=== PATIENT | male | born 2000 | race Caucasian/White ===

== ENCOUNTER 2019-08-29 15:26 | Emergency (ER) | payer SELFPAY ==
--- NOTE | 2019-08-29 15:31 | XRR_ITS ---
PROCEDURE INFORMATION: Exam: XR Right Hand Exam date and time: 08/29/2019 4:04 PM Age: 19 years old Clinical indication: Injury or trauma; Injury history: Punched the floor; Initial encounter; Blunt trauma (contusions or hematomas; Hand; Right; Injury date: 08/26/19 TECHNIQUE: Imaging protocol: XR Right hand. Views: 3 or more views. COMPARISON: No relevant prior studies available. FINDINGS: Bones/joints: There is an acute nondisplaced fracture of the proximal 5th metacarpal. No intra-articular extension is seen. No dislocation. Soft tissues: Soft tissue swelling. XR/XR hand RT min 3V* [id number] IMPRESSION: Acute nondisplaced fracture of the proximal 5th metacarpal.
[2019-08-29 15:32] VITALS: BP 157/92; PULSE 98; RESP 18; TEMP 36.5; O2SAT 98; BMI 19.2
--- NOTE | 2019-08-29 18:30 | ED_ITS ---
HPI - Extremity Problem General: Chief complaint: Extremity Injury, Upper Stated complaint: hurt right hand Time Seen by Provider: 08/29/19 18:10 History of Present Illness: HPI Narrative: Myles is a 19-year-old male who comes in after he punched the ground with his right hand 3 to 4 days ago. He has had pain and swelling since that time. The pain is described as moderate to severe located mostly on the medial aspect of the hand back by the pinky finger. Patient is able to move his hand completely except for what is limited by swelling. He denies any distal numbness tingling or weakness. Of course moving his hand makes the pain worse and rest and ice make it better. Patient denies any other injuries or complaints. Associated symptoms: Deny chest pain, fever(s) or rash Review of Systems Const: Denies: fever(s), chills, body aches, fatigue, malaise, night sweats or diaphoresis Eyes: Denies: change in vision, blurry vision or blind spots ENMT: Denies: throat pain, odynophagia, hoarseness, ear or mastoid pain, ear discharge, change in hearing or nasal discharge Card: Denies: chest pain, palpitations, irregular heart rhythm, lightheadedness, syncope, pre-syncope, dyspnea on exertion or orthopnea Resp: Denies: dyspnea, productive cough, non-productive cough, wheezing, hemoptysis or chest congestion GI: Denies: abdominal pain, nausea, vomiting, hematemesis, coffee ground emesis, heartburn, diarrhea, constipation, GI cramping, hematochezia or melena : Denies: flank pain, dysuria, urinary frequency, urinary urgency, oliguria, urinary incontinence or hematuria Musc: Reports: extremity pain and joint pain; Denies: neck pain, back pain, extremity swelling, joint swelling, joint redness, joint warmth or joint stiffness Skin/Breast: Denies: rash, pruritus, erythema, skin tenderness or jaundice Neuro: Denies: headache(s), numbness in extremities, weakness in extremities, sensory changes, lack of coordination, difficulty walking, dizziness, vertigo, confusion or Slurred speech present Endo: Denies: polyuria, polydipsia, tired all the time, cold intolerance, excessive sweating, flushing, hot flashes or heat intolerance [place]/Lymph: Denies: easy bruising, easy bleeding, petechiae, purpura or enlarged lymph nodes All/Imm: Denies: urticaria, throat swelling, tongue swelling, facial swelling or acute wheezing PFSH ED PFSH: Medical History (Updated 08/29/19 @ 18:49 by Francheska Mcintosh) No pertinent past medical history Social History Smoking and tobacco status: current every day smoker Physical Exam Const: COMMON NORMALS: no acute distress, patient oriented x3, no limitations, healthy appearing and well nourished EXAM LIMITATIONS: no altered mental status GENERAL APPEARANCE: cooperative, well kempt and well developed HENMT: COMMON NORMALS: normocephalic, atraumatic, hearing grossly normal bilaterally, external ears normal, EAC's normal, Normal external nose present and moist oral mucous membranes HEAD & SCALP: normal to inspection, normocephalic and atraumatic FACE & SINUS: normal facial exam and face symmetric NOSE: Normal external nose present and Normal nares present EXTERNAL EAR: Yes external ears normal EXTERNAL AUDITORY CANAL: EAC's normal MOUTH: Normal oral and palatal mucosa present, lip normal and tongue normal Eye: COMMON NORMALS: Equal, round and reactive pupils present, EOMs intact bilaterally, conjunctivae normal and no scleral icterus GENERAL EYE: appearance normal, both eyes and all related structures and normal light reflex ALIGNMENT: Yes alignment normal PERIORBITAL: periorbital findings normal EYELID: eyelids normal CONJUNCTIVA: Yes conjunctivae normal SCLERA: sclerae normal PUPIL: Yes Equal, round and reactive pupils present DIRECT OPHTHALMOSCOPY: Yes normal light reflex Neck/C-Spine: COMMON NORMALS: full ROM, no lymphadenopathy, supple, no meningeal signs and no JVD GENERAL: Yes normal visual inspection and Yes trachea midline CERVICAL SPINE: Yes cervical ROM normal Chest: COMMONS NORMALS: normal inspection of the chest and normal palpation of entire chest wall Resp: COMMON NORMALS: normal respiratory effort, No retractions, No use of a ccessory muscles and clear to auscultation bilaterally EFFORT & INSPECTION: Yes able to speak in complete sentences AUSCULTATION: clear to auscultation bilaterally, no crackles, no rales, no rhonchi and no wheezes Cardio: COMMON NORMALS: no JVD, regular rate, regular rhythm, S1 normal heart sound present, S2 normal heart sound present, No gallops present (Cardio), No clicks present (Cardio), No murmurs present (Cardio) and No rub (Cardio) RATE: regular rate RHYTHM: regular rhythm HEART SOUNDS: S1 normal heart sound present, S2 normal heart sound present, no click, no gallops, no murmurs and no rubs GI: COMMON NORMALS: Soft to palpation, non-tender, No hepatosplenomegaly present and no masses PALPATION: Yes Soft to palpation, No Tenderness to palpation present (GI), No Guarding due to palpation present (GI), No Rigid due to palpation, Yes No hepatosplenomegaly present, No Hernia present, No Palpable mass present and No Pulsatile mass present : COMMON NORMALS: Yes no CVA tenderness BLADDER/KIDNEY EXAM: Yes no CVA tenderness Back/Pelvis: COMMON NORMALS: no CVA tenderness, thoracic and lumbar spine normal to inspection, no thoracic nor lumbar tenderness and thoraco-lumbar ROM normal Extremity: NARRATIVE EXTREMITY EXAM: Musculoskeletal exam was unremarkable except for right hand. Right hand swollen with mild tenderness over the fifth metacarpal area. He is neurovascular intact distal. No crepitance noted. Neuro: COMMON NORMALS: patient oriented x3, CN's II-XII intact bilaterally, moves all extremities, no focal motor deficits and no sensory deficits noted MENINGEAL SIGNS: Yes no meningeal signs SPEECH: speech normal Psych: COMMON NORMALS: mental status grossly normal, Normal thought process present, cooperative, normal affect, speech normal and activity/motor behavior normal APPEARANCE: Yes well kempt SPEECH: Yes normal speech THOUGHT PROCESS: Normal thought process present Skin: COMMON NORMALS: no rashes or lesions noted, turgor normal, no jaundice, no petechiae and no mottling GENERAL SKIN EXAM: no rashes or lesions noted and turgor normal Course Vital Signs: Vital signs: Vital Signs Temperature 97.7 F 08/29/19 15:32 Pulse Rate 98 08/29/19 15:32 Respiratory Rate 18 08/29/19 19:13 Blood Pressure 157/92 08/29/19 15:32 Pulse Oximetry 98 08/29/19 15:32 MDM - Extremity (Nontraumatic) MDM Narrative: Medical decision making narrative: Myles comes in with a fracture of his fifth metacarpal. He only has mild pain at this time. I placed him in a splint and sling and have him follow-up with orthopedics. He denies any questions or concerns and wants to follow-up as I have instructed him. Imaging Data^: Right Hand: My impression: Nondisplaced fracture at the base of the fifth metacarpal. Discharge Plan Discharge Patient Disposition: Home, Self-Care Clinical Impression: Metacarpal bone fracture Qualifiers: Encounter type: initial encounter Metacarpal bone: fifth Fracture type: closed Metacarpal location: base Fracture alignment: nondisplaced Laterality: right Qualified Code(s): S62.346A - Nondisplaced fracture of base of fifth metacarpal bone, right hand, initial encounter for closed fracture Condition: Stable Prescriptions: [place] 5-325 mg tablet 1 tab PO Q6H PRN (Reason: pain) 5 Days Qty: 10 RF: 0 No Action No Known Home Medications RF: 0 Discharge Orders: Discharge Order (Routine); Ordered 08/29/19 Ordered By: Francheska Mcintosh Referrals: Donna Al MD [Primary Care Provider] - Denia Hawkins MD [Physician] - 1-3 days (Call [phone] using option 2, dial extension [phone] Petra Noe as she will arrange for you an appointment to be seen on Sunday. If for any reason you cannot be seen return to the ER for recheck.) Discharge Diet: Usual diet Discharge Activity: Limit activity as instructed Patient Instructions: Hand Fracture (ED) Activity Restrictions/Additional Instructions: Please return to the ER immediately for any of the signs or symptoms listed on your discharge instruction sheets, worsening/changing of your symptoms, you are not getting better as quickly as expected, or for ANY other cause or concerns. Use your splint and sling at all times and take the pain medicine I have prescribed you as needed. Do not take additional Tylenol with this. Call Petra Matson on Sunday first thing in the morning as she has guaranteed she will fit you in for an appointment with 1 of the orthopedic doctors. 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
[2019-08-29] MEDS: HYDROcodone-acetaminophen 5-325 mg Tablet 1 TAB PO (18:39)
[2019-08-29 19:13] VITALS: RESP 18
--- NOTE | 2019-09-01 10:58 | DCPLANNER ---
health information managers had message to schedule a follow up appointment for patient with ortho. health information managers had message to schedule a follow up appointment for patient with ortho. health information managers was told that patients information would be printed and reviewed. Clinic will call clinical case manager and patient with appointment information.
--- NOTE | 2019-09-03 12:49 | DCPLANNER ---
Patients appointment scheduled for 09.01.19 had been cancelled.
== END 2019-08-29 19:13 | disposition home or self-care (01) ==
PROVIDERS: Emergency Provider Emergency Medicine; PCP Pediatrics Adolescent Medicine
DX: S62.346A Nondisplaced fracture of base of fifth metacarpal bone, right hand, initial encounter for closed fracture (principal); W22.09XA Striking against other stationary object, initial encounter; F17.210 Nicotine dependence, cigarettes, uncomplicated
CPT/HCPCS: 12345; 29125; 73130; 99281; 99283

== ENCOUNTER 2020-07-12 12:09 | Emergency (ER) | payer OTHER, SELFPAY ==
[2020-07-12 12:13] VITALS: BP 116/64; PULSE 100; RESP 18; TEMP 36.8; O2SAT 98; BMI 21.8
--- NOTE | 2020-07-12 12:18 | XRR_ITS ---
PROCEDURE INFORMATION: Exam: XR Right Hand Exam date and time: 07/12/2020 12:19 PM Age: 20 years old Clinical indication: Injury or trauma; Other: Power tool; Amputation, traumatic; Hand; Right; Injury date: 07/12/20; Patient HX: 2nd and 3rd digit amputation; Additional info: Finger amputation TECHNIQUE: Imaging protocol: XR Right hand. Views: 3 or more views. COMPARISON: CR XR hand RT min 3V* [id number] 08/29/2019 3:53 PM FINDINGS: Bones/joints: There is traumatic amputation of the distal phalange of the 2nd and 3rd digits. The exam shows multiple residual bone fragments associated with distal phalange. Soft tissues: There is soft tissue edema laceration and deformity seen in the soft tissues of the 2nd and 3rd digit. Soft tissues: Normal. Other findings: These findings were not seen on prior examination. XR/XR hand RT min 3V* [id number] IMPRESSION: 1. Traumatic amputation distal phalange of the 2nd 3rd digit. Multiple bone fragments, soft tissue edema, and laceration are seen in the distal aspect of these digits. 2. Otherwise negative for additional bony abnormality.
[2020-07-12] MEDS: sodium chloride 0.9% 1,000 ML 999 ML IV (12:27)
[2020-07-12 12:30] VITALS: RESP 16; O2SAT 100
[2020-07-12] MEDS: morphine 4 mg/mL SDV 1 mL IVP ×2 (12:30→13:41)
[2020-07-12] MEDS: ondansetron 2 mg/ML SDV 2 mL 4 MG IVP (12:30)
[2020-07-12] MEDS: ceFAZolin 1,000 MG in sodium chloride 0.9% (plus) 50 ML 100 MG IV (12:34)
[2020-07-12] MEDS: tetanus-dipt-pertussis 0.5 mL SDV IM (12:36)
[2020-07-12 12:55] VITALS: BP 138/89; PULSE 73; RESP 18; O2SAT 100
--- NOTE | 2020-07-12 13:08 | ED_ITS ---
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 This happened while he was at work and he was brought in here to be evaluated. complaint: injury Onset (ago): minute(s) (20) Loss of Consciousness: no Location - Extremities: Right: hand Severity: severe Context: other (work injury) Associated symptoms: Denies abdominal pain, anorexia, back pain, chest pain, chills, confusion, cough, dental pain, diaphoresis, difficulty breathing, dizziness, epistaxis, fever(s), headache(s), nausea, seizures, short of breath, syncope, visual disturbances, vomiting or weakness Review of Systems General: Reports: 10 or more systems reviewed and unremarkable except in HPI and below Const: Denies: fever(s), chills or diaphoresis ENMT: Denies: dental pain or epistaxis Card: Denies: chest pain or syncope GI: Denies: abdominal pain, nausea or vomiting Musc: Denies: back pain Neuro: Denies: headache(s), dizziness or confusion PFS ED PFSH: Medical History No pertinent past medical history Social History Smoking and tobacco status: current every day smoker Physical Exam Const: COMMON NORMALS: no acute distress, average body habitus, patient oriented x3, no limitations, healthy appearing, alert and well nourished HENMT: COMMON NORMALS: normocephalic, atraumatic and moist oral mucous membranes HEAD & SCALP: normocephalic and atraumatic Neck/C-Spine: COMMON NORMALS: no meningeal signs and no JVD Resp: COMMON NORMALS: normal respiratory effort, No retractions, No use of accessory muscles, clear to auscultation bilaterally and percussion normal AUSCULTATION: clear to auscultation bilaterally PERCUSSION: percussion normal Cardio: COMMON NORMALS: no JVD, regular rate, regular rhythm, S1 normal heart sound present, S2 normal heart sound present, No gallops present (Cardio), No clicks present (Cardio), No murmurs present (Cardio), No rub (Cardio) and Peripheral pulses 2+ throughout RATE: regular rate RHYTHM: regular rhythm HEART SOUNDS: S1 normal heart sound present and S2 normal heart sound present PERIPHERAL PULSES: Peripheral pulses 2+ throughout GI: COMMON NORMALS: Normal to inspection, nondistended, normoactive bowel sounds present, Soft to palpation, non-tender, No hepatosplenomegaly present, no masses and no bruits PALPATION: Yes Soft to palpation and Yes No hepatosplenomegaly present Extremity: COMMON NORMALS: full ROM, capillary refill normal, no calf tenderness and no pedal edema OTHER: Partial amputation of the right index and long finger. DThe cut is on the palmar surface of the fingers with jagged wound edges which are also blackish. There is exposed muscle, tendon and bone. No bleeding noted from the wound. Neuro: COMMON NORMALS: patient oriented x3 SENSORIUM/ORIENTATION: Yes alert MENINGEAL SIGNS: Yes no meningeal signs Skin: COMMON NORMALS: no rashes or lesions noted, no wounds, turgor normal, no jaundice, no petechiae and no mottling GENERAL SKIN EXAM: no rashes or lesions noted and turgor normal Procedures Nerve Block Nerve Block 1: Time out performed: Yes Local Anesthetic: lidocaine 1% Amount of anesthesia used (mL): 10 Side: right Nerve Blocks: digital Procedure Successful: Yes Patient Tolerated Procedure: well Complications: none Nerve Block 2: Time out performed: Yes Local Anesthetic: bupivacaine 0.5% Amount of anesthesia used (mL): 10 Side: right Nerve Blocks: digital Procedure Successful: Yes Patient Tolerated Procedure: well Complications: none MDM - Trauma MDM Narrative: Medical decision making narrative: This 20 year old male presented to the ED following amputation of two digits. His wounds were cleaned, he was given IV antibiotic, and he is transferred to [facility] in [place] for evaluation and management by a hand surgeon. He had no other injuries and he was clinically stable throughout his ED stay. Medical Records: Attestation: I reviewed the patient's medical records. Lab Data: Attestation: I reviewed the patient's lab results. Imaging Data^: Xray Ortho: Attestation: I personally reviewed and interpreted this imaging study as follows: Radiologist's impression: [address] [address] XRay Report Signed Patient: Myles Kelly #: [id number] : 2000Acct#:[id number] Age/Sex: 20 / MADM Date: 07/12/20 Loc: ERRoom/Bed: Attending Dr: Ordering Provider/Ordering MD: Reyes David [place] [facility] [place] Service: 07/12/20 Procedure(s): XR hand RT min 3V* [id number] Accession Number(s): [id number] Report Number: [id number] PROCEDURE INFORMATION: Exam: XR Right Hand Exam date and time: 07/12/2020 12:19 PM Age: 20 years old Clinical indication: Injury or trauma; Other: Power tool; Amputation, traumatic; Hand; Right; Injury date: 07/12/20; Patient HX: 2nd and 3rd digit amputation; Additional info: Finger amputation TECHNIQUE: Imaging protocol: XR Right hand. Views: 3 or more views. COMPARISON: CR XR hand RT min 3V* [id number] 08/29/2019 3:53 PM FINDINGS: Bones/joints: There is traumatic amputation of the distal phalange of the 2nd and 3rd digits. The exam shows multiple residual bone fragments associated with distal phalange. Soft tissues: There is soft tissue edema laceration and deformity seen in the soft tissues of the 2nd and 3rd digit. Soft tissues: Normal. Other findings: These findings were not seen on prior examination. XR/XR hand RT min 3V* [id number] IMPRESSION: 1. Traumatic amputation distal phalange of the 2nd 3rd digit. Multiple bone fragments, soft tissue edema, and laceration are seen in the distal aspect of these digits. 2. Otherwise negative for additional bony abnormality. Dictated By:Jordi Marte Signed By:Carlos Marte Date/Time:07/12/20 1312 DD/ 1310 Discharge Plan Discharge Patient Disposition: Xfer Short-Term Hosp Clinical Impression: Amputation of finger of right hand Condition: Stable Discharge Orders: Transfer Out of Facility (Order); Ordered 07/12/20 Ordered By: Adegoke I Frankie Referrals: Donna Al MD [Primary Care Provider] - Coding Level of Care Code ED Woodyard Operator for Chg Fwd Exam Comprehensive
[2020-07-12 13:41] VITALS: RESP 16; O2SAT 98
[2020-07-12 13:45] VITALS: BP 138/78; PULSE 101; RESP 16; O2SAT 100
== END 2020-07-12 13:46 | disposition short-term general hospital (02) ==
PROVIDERS: Emergency Provider Family Medicine; PCP Pediatrics Adolescent Medicine
DX: S68.110A Complete traumatic metacarpophalangeal amputation of right index finger, initial encounter (principal); S68.112A Complete traumatic metacarpophalangeal amputation of right middle finger, initial encounter; W31.2XXA Contact with powered woodworking and forming machines, initial encounter; F17.210 Nicotine dependence, cigarettes, uncomplicated; Z23 Encounter for immunization
CPT/HCPCS: 73130; 90471; 90715; 96365; 96375; 96376; 99285; J0690; J2270; J2405; J3490; J7030

== ENCOUNTER → 2021-12-05 10:39 | Outpatient (BNVA) | payer SELFPAY | PROVIDERS: PCP Pediatrics Adolescent Medicine; Visit Provider Registered Nurse Neonatal Intensive Care | DX: Z20.2 Contact with and (suspected) exposure to infections with a predominantly sexual mode of transmission (principal); J01.90 Acute sinusitis, unspecified | CPT/HCPCS: 87491; 87591 ==

== ENCOUNTER 2024-02-07 07:41 | Emergency (ER) | payer SELFPAY ==
[2024-02-07] VITALS (7 sets, daily range): BP systolic 109–124; BP diastolic 68–82; PULSE 56–79; RESP 16; TEMP 36.4; O2SAT 96–100; BMI 21.8
--- NOTE | 2024-02-07 07:54 | XR_ITS ---
WS: [id number] Exam: XR chest 1V [id number] Date/Time of Exam: 02/07/2024 8:10 AM Reason For Exam: PAIN Comparison 01/27/2016. The lungs are clear and fully inflated. Normal cardiomediastinal silhouette and regional bony element s. No pleural effusions. XR/XR chest 1V [id number] IMPRESSION: 1. Normal chest.
--- NOTE | 2024-02-07 08:00 | CTR_ITS ---
PROCEDURE INFORMATION: Exam: CT Abdomen And Pelvis With Contrast Exam date and time: 02/07/2024 8:31 AM Age: 23 years old Clinical indication: Nausea and vomiting; Localized; Patient HX: T complains of throwing up blood this morning. PT states he typically throws up bile every morning. PT states today his vomit had some blood in it. PT states he has some associated upper abdominal pain. ; Additional info: Abd pain TECHNIQUE: Imaging protocol: Computed tomography of the abdomen and pelvis with contrast. Radiation optimization: All CT scans at this facility use at least one of these dose optimization techniques: automated exposure control; mA and/or kV adjustment per patient size (includes targeted exams where dose is matched to clinical indication); or iterative reconstruction. Contrast material: OMNI 350; Contrast volume: 100 ml; Contrast route: INTRAVENOUS (IV); COMPARISON: CR XR chest 1V [id number] 02/07/2024 8:17 AM RADIATION DOSE METRICS: Total DLP (mGy-cm): 417.53 FINDINGS: Lungs: Visualized lung bases are clear. Liver: The liver is unremarkable. Gallbladder and biliary ducts: The gallbladder is unremarkable. No biliary ductal dilatation. Pancreas: The pancreas is unremarkable. Spleen: The spleen is unremarkable. Adrenal glands: The adrenal glands are unremarkable. Kidneys and ureters: Kidneys are normal. No hydronephrosis or nephrolithiasis. Stomach and bowel: Nonobstructive bowel-gas pattern. Appendix: No evidence of acute appendicitis. Intraperitoneal space: No significant free fluid in the abdomen or pelvis. No extraluminal free air. Vasculature: Abdominal aorta and its major branches are within normal limits. Lymph nodes: No distinct pathologically enlarged lymphadenopathy. Urinary bladder: Urinary bladder is within normal limits. Reproductive: Visualized reproductive structures are within normal limits. Bones/joints: No acute osseous findings. Soft tissues: Visualized superficial soft tissues are within normal limits. CT/CT abdomen pelvis w con* [id number] IMPRESSION: No acute pathologic findings in the abdomen/pelvis.
--- NOTE | 2024-02-07 08:16 | ED_ITS ---
HPI - Nausea/Vomiting/Diarrhea 2 General: Chief complaint: Nausea/Vomiting/Diarrhea Stated complaint: abd pain Time Seen by Provider: 02/07/24 08:00 History of Present Illness: 23-year-old male presents emergency room complaining of abdominal pain mostly epigastric. Is been going on for several weeks. He states he throws up bilious like material almost daily in the morning. Does not notice anything that exacerbates or relieves it he has not noticed any particular trigger foods. This morning he had some vomiting that included some streaking of blood he states it was a little more than specks of blood but not large quantities. Happened just 1 time. He denies any hematochezia or melena. No previous abdominal surgeries he is currently on amoxicillin for a tooth infection is also on duloxetine. No history of any ulcers no history of any upper GI bleed. Associated nausea: Yes Associated symtoms: Reports nausea; Denies chest pain or dysuria Related Data Home Medications Medication Instructions Recorded Confirmed amoxicillin 500 mg capsule 500 mg PO Q8H 02/07/24 02/07/24 Previous Rx's Medication Instructions Recorded duloxetine 30 mg capsule,delayed 30 mg PO DAILY #30 caps 12/19/23 release duloxetine 60 mg capsule,delayed 60 mg PO DAILY #30 caps 12/19/23 release trazodone 50 mg tablet 100 mg (2 x 50 mg) PO .HS PRN 12/19/23 insomnia #60 tabs pantoprazole 40 mg tablet,delayed 40 mg PO BID 10 days #40 tabs 02/07/24 release Allergies Allergy/AdvReac Type Severity Reaction Status Date / Time No Known Allergies Allergy Verified 01/29/24 12:27 Review of Systems 2 Const: Denies: fever(s) or chills Card: Denies: chest pain Resp: Denies: dyspnea GI: Reports: abdominal pain, nausea, vomiting and hematemesis; Denies: coffee ground emesis, hematochezia or melena : Denies: dysuria, urinary frequency or urinary urgency Musc: Denies: neck pain or back pain Skin/Breast: Denies: rash PFSH ED 2 PFSH: Medical History Psychiatric care No pertinent past medical history Social History Smoking and tobacco/nicotine status: current every day tobacco/nicotine user Physical Exam 2 Const: COMMON NORMALS: no acute distress GENERAL APPEARANCE: cooperative and comfortable ORIENTATION/CONSCIOUSNESS: Yes awake, Yes oriented to person, Yes oriented to place and Yes oriented to time HENMT: COMMON NORMALS: normocephalic, atraumatic and hearing grossly normal bilaterally HEAD & SCALP: normocephalic and atraumatic Resp: COMMON NORMALS: normal respiratory effort, No retractions, No use of accessory muscles and clear to auscultation bilaterally AUSCULTATION: clear to auscultation bilaterally Cardio: COMMON NORMALS: regular rate, regular rhythm and No murmurs present (Cardio) RATE: regular rate RHYTHM: regular rhythm GI: COMMON NORMALS: No hepatosplenomegaly present AUSCULTATION: Yes normoactive bowel sounds PALPATION: Yes Tenderness to palpation present (GI), No Guarding due to palpation present (GI) and Yes No hepatosplenomegaly present Extremity: COMMON NORMALS: normal to inspection, capillary refill normal, no clubbing, cyanosis or edema, no calf tenderness and no pedal edema Neuro: SENSORIUM/ORIENTATION: Yes oriented to person, Yes oriented to place and Yes oriented to time Skin: COMMON NORMALS: no rashes or lesions noted GENERAL SKIN EXAM: no rashes or lesions noted Course 2 Vital Signs: Vital signs: Vital Signs Temperature 97.6 F 02/07/24 07:52 Pulse Rate 56 L 02/07/24 10:41 Respiratory Rate 16 02/07/24 07:52 Blood Pressure 124/82 02/07/24 10:41 Pulse Oximetry 99 02/07/24 10:41 Oxygen Delivery Me thod Room Air 02/07/24 07:52 MDM - Nausea/Vomiting/Diarrhea Medical Decision Making Labs and imaging reviewed no acute findings. Suspect patient is having significant reflux. He did not have any sign of acute GI bleed will discharge patient home clear liquid diet for 24 to 48 hours and advance as tolerated started on Protonix 40 mg twice a day for 10 days then 40 mg once a day refer to general surgery for possible EGD. Also discussed potential role of marijuana use in the patient's symptoms. Medical Records I reviewed the patient's medical records. Lab Data I reviewed the patient's lab results. 02/07/24 08:07 02/07/24 08:07 Radiology Impressions Chest X-Ray 02/07/24 07:54 IMPRESSION: 1. Normal chest. Abdomen/Pelvis CT 02/07/24 08:00 IMPRESSION: No acute pathologic findings in the abdomen/pelvis. Laboratory Results WBC 5.99 10^3/uL (3.29-11.43) 02/07/24 08:07 RBC 5.05 10^6/uL (3.85-5.65) 02/07/24 08:07 Hgb 14.40 g/dL (11.27-16.99) 02/07/24 08:07 Hct 44.6 % (37-53) 02/07/24 08:07 MCV 88.3 fl (82-101) 02/07/24 08:07 MCH 28.5 pg (27-33) 02/07/24 08:07 MCHC 32.3 g/dL (30-55) 02/07/24 08:07 RDW 13.2 % (12.1-15.1) 02/07/24 08:07 Plt Count 243 10^3/cmm (157-399) 02/07/24 08:07 MPV 9.8 fL (7.4-10.4) 02/07/24 08:07 Neut % (Auto) 54.6 % 02/07/24 08:07 Lymph % (Auto) 31.7 % 02/07/24 08:07 [place] % (Auto) 7.7 % 02/07/24 08:07 Eos % (Auto) 4.0 % 02/07/24 08:07 Baso % (Auto) 0.8 % 02/07/24 08:07 Neut # (Auto) 3.27 10^3/uL (1.8-7.7) 02/07/24 08:07 Lymph # (Auto) 1.9 10^3/uL (0.8-4.8) 02/07/24 08:07 [place] # (Auto) 0.5 10^3/uL (0.2-0.9) 02/07/24 08:07 Eos # (Auto) 0.2 10^3/uL (0.0-0.8) 02/07/24 08:07 Baso # (Auto) 0.1 10^3/uL (0.0-0.1) 02/07/24 08:07 Nucleated RBC % (auto) 0 % 02/07/24 08:07 Nucleated RBCs # 0.0 /100WBC 02/07/24 08:07 PT 13.10 SECONDS (12.1-14.9) 02/07/24 08:07 INR 0.96 (0.8-1.2) 02/07/24 08:07 APTT 26.0 SECONDS (23.9-36.7) 02/07/24 08:07 Sodium 139 mmol/L (136-145) 02/07/24 08:07 Potassium 4.6 mmol/L (3.5-5.1) 02/07/24 08:07 Chloride 105 mmol/L (98-107) 02/07/24 08:07 Carbon Dioxide 25 mmol/L (22-29) 02/07/24 08:07 Anion Gap 13.6 (5-19) 02/07/24 08:07 BUN 16 mg/dL (6-20) 02/07/24 08:07 Creatinine 0.9 mg/dL (0.7-1.2) 02/07/24 08:07 GFR Calculation 103.7 mL/min (90-130) 02/07/24 08:07 Glucose 103 mg/dL (65-115) 02/07/24 08:07 Calculated Osmolality 289 mOsm/kg (285-295) 02/07/24 08:07 Calcium 8.5 mg/dL (8.5-10.5) 02/07/24 08:07 Urine Color Yellow (Yellow) 02/07/24 08:30 Urine Appearance Clear (CLEAR) 02/07/24 08:30 Urine pH 7.0 (5-7) 02/07/24 08:30 Ur Specific [place] 1.024 (1.005-1.030) 02/07/24 08:30 Urine Protein Negative (Negative) 02/07/24 08:30 Urine Glucose (UA) Negative (Normal) 02/07/24 08:30 Urine Ketones Negative (Negative) 02/07/24 08:30 Urine Blood Negative (Negative) 02/07/24 08:30 Urine Nitrate Negative (Negative) 02/07/24 08:30 Urine Bilirubin Negative (Negative) 02/07/24 08:30 Urine Urobilinogen 1.0 mg/dL (Negative) 02/07/24 08:30 Ur Leukocyte Esterase Negative (Negative) 02/07/24 08:30 Urine RBC 0-2 /hpf (0-2) 02/07/24 08:30 Urine WBC 0-5 /hpf (0-5) 02/07/24 08:30 Ur Squamous Epith Cells 0-5 /hpf (0-5) 02/07/24 08:30 Amorphous Sediment Not Reportable 02/07/24 08:30 Urine Bacteria None seen /hpf (NONE) 02/07/24 08:30 Hyaline Casts 0-4 /lpf H 02/07/24 08:30 All radiology interpretation(s) finalized by discharge Discharge Plan Discharge Patient Disposition: Home Clinical Impression: Chronic GERD Condition: Stable Prescriptions: New pantoprazole 40 mg tablet,delayed release (DR/EC) 40 mg PO BID 10 Days Qty: 40 0RF Rx Instructions: 1 p.o. twice daily for 10 days then 1 p.o. daily No Action trazodone 50 mg tablet 100 mg PO .HS PRN (Reason: insomnia) Qty: 60 2RF duloxetine 30 mg capsule,delayed release(DR/EC) 30 mg PO DAILY Qty: 30 0RF duloxetine 60 mg capsule,delayed release(DR/EC) 60 mg PO DAILY Qty: 30 1RF Rx Instructions: Start after 1 month on 30 mg. amoxicillin 500 mg capsule 500 mg PO Q8H Discharge Orders: Discharge ED (Routine); Ordered 02/07/24 Ordered By: Avinash Montes De Oca Referrals: Donna Al MD [Primary Care Provider] - Discharge Diet: As Directed Discharge Activity: Resume usual activity Patient Instructions: Diet for Stomach Ulcers and Gastritis (ED), GERD (Gastroesophageal Reflux Disease) (ED), Opioid Safety, Pain Management Activity Restrictions/Additional Instructions: Thank you for choosing [facility] for your healthcare needs today. It is very important that you follow up as instructed or that you return to the Emergency Department should you have concerns or if your condition changes or worsens in any way. You are seen in the emergency room with complaints of frequent vomiting stomach upset and some blood in vomitus. Your laboratory tests were stable your CT of your abdomen was normal. Recommend starting on pantoprazole 1 pill twice a day for 10 days then 1 pill once a day. Case management make arrangements for you to follow-up with general surgery for possible EGD Coding Level of Care Code ED Concierge Manager for Brandon Stanton
[2024-02-07 08:17] LABS: Basophils # 0.1 10^3/uL (0.0-0.1); Basophils % 0.8 %; Eosinophils # 0.2 10^3/uL (0.0-0.8); Hematocrit 44.6 % (37-53); Lymphocytes # 1.9 10^3/uL (0.8-4.8); Lymphocytes % 31.7 %; Mean Corpuscular HGB Conc 32.3 g/dL (30-55); Mean Corpuscular Hemoglobin 28.5 pg (27-33); Mean Corpuscular Volume 88.3 fl (82-101); Mean Platelet Volume 9.8 fL (7.4-10.4); Monocytes # 0.5 10^3/uL (0.2-0.9); Monocytes % 7.7 %; Neutrophils # 3.27 10^3/uL (1.8-7.7); Neutrophils % 54.6 %; Nucleated Red Blood Cells % 0 %; Platelet Count 243 10^3/cmm (157-399); Red Blood Count 5.05 10^6/uL (3.85-5.65); Red Cell Distribution Width 13.2 % (12.1-15.1); White Blood Count 5.99 10^3/uL (3.29-11.43)
[2024-02-07 08:27] LABS: INR 0.96 (0.8-1.2)
[2024-02-07 08:32] LABS: Anion Gap 13.6 (5-19); Blood Urea Nitrogen 16 mg/dL (6-20); Calcium 8.5 mg/dL (8.5-10.5); Carbon Dioxide 25 mmol/L (22-29); Chloride 105 mmol/L (98-107); Creatinine Clr Calc Pharmacy 143.5042; Glomerular Filtration Rate 103.7 mL/min (90-130); Glucose 103 mg/dL (65-115); Osmolality Calculated 289 mOsm/kg (285-295); Potassium 4.6 mmol/L (3.5-5.1); Sodium 139 mmol/L (136-145)
[2024-02-07] MEDS: iohexol 350 mg/mL 500 mL Btl (per mL) IV (08:37)
[2024-02-07] MEDS: lidocaine 2% viscous 15 ML, aluminum-mag hydrox-simethicon 30 ML, sucralfate oral liq 1 GM PO (08:44)
[2024-02-07 08:48] LABS: Bilirubin Urine Negative (Negative); Blood Urine Negative (Negative); Glucose Urine UA Negative (Normal); Ketones Urine Negative (Negative); Leukocyte Esterase Urine Negative (Negative); Nitrate Urine Negative (Negative); Protein Urine Negative (Negative); Specific Gravity, Urine 1.024 (1.005-1.030); Urine Appearance Clear (CLEAR); Urine Color Yellow (Yellow)
[2024-02-07 08:53] LABS: Add Urine Microscopic? YES; Bacteria Urine None Seen /hpf; Hyaline Casts Urine 0-4 /lpf; RBC Urine 0-2 /hpf (0-2); Squamous Epithelial Cell Urine 0-5 /hpf (0-5); WBC Urine 0-5 /hpf (0-5)
== END 2024-02-07 10:42 | disposition home or self-care (01) ==
PROVIDERS: Emergency Provider Family Medicine; PCP Pediatrics Adolescent Medicine
DX: K21.9 Gastro-esophageal reflux disease without esophagitis (principal)
CPT/HCPCS: 71045; 74177; 80048; 81001; 85025; 85610; 85730; 99285

== ENCOUNTER 2024-05-02 14:12 | Emergency (ER) | payer SELFPAY ==
[2024-05-02 14:22] VITALS: BP 164/82; PULSE 110; RESP 16; TEMP 36.7; O2SAT 94; BMI 20.5
--- NOTE | 2024-05-02 14:54 | ED_ITS ---
HPI - Extremity Injury (Upper) General: Chief Complaint: Extremity Injury, Lower Stated Complaint: smashed fingers by chop saw Time Seen by Provider: 05/02/24 14:53 Source: patient Mode of arrival: ambulatory Limitations: no limitations History of Present Illness: Patient is a 24-year-old male who presents to the ED today for evaluation of right third and fourth distal digit injuries that occurred just prior to arrival while at work and getting them smashed. He states this is not Worker's Comp. injury. Denies any lacerations, abrasions, breaks in the skin, or nail damage. 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 complaint: injury to: right and finger Onset (ago): hour(s) Other Extremity Injury: Right: hand Other injuries: none Place: work Severity: mild Relieving factors: none Exacerbating factors: none Context: crush Associated symptoms: Reports no associated symptoms Related Data Previous Rx's Medication Instructions Recorded trazodone 50 mg tablet 100 mg (2 x 50 mg) PO .HS PRN 03/25/24 insomnia #60 tabs venlafaxine 75 mg capsule,extended 75 mg PO DAILY #30 caps 03/25/24 release 24 hr (Effexor XR) Allergies Allergy/AdvReac Type Severity Reaction Status Date / Time No Known Allergies Allergy Verified 03/25/24 10:51 Review of Systems Musc: Reports: extremity pain; Denies: extremity swelling Skin/Breast: Reports: other (no lacerations/abrasions) Neuro: Denies: numbness in extremities or sensory changes [facility] ED PFSH: Medical History Psychiatric care No pertinent past medical history Social History Smoking and tobacco/nicotine status: current every day tobacco/nicotine user Physical Exam Const: COMMON NORMALS: no acute distress, average body habitus, no limitations, healthy appearing and well nourished Extremity: GENERAL: Yes normal exam except as noted RIGHT UPPER EXTREMITY: Yes hand & digits (previous amputation at DIP joints of R 2nd/3rd digits) Right hand and digits: Yes inspection (normal gross inspection), Yes ROM exam (normal), Yes neurovascular exam (normal) and Yes other (TTP distal 4th finger tip, TTP distal 3rd finger; no edema/trauma) Neuro: COMMON NORMALS: moves all extremities, no focal motor deficits and no sensory deficits noted Skin: TRAUMA: no lacerations or abrasions Course Vital Signs: Vital signs: Vital Signs Temperature 98.0 F 05/02/24 14:22 Pulse Rate 110 H 05/02/24 14:22 Respiratory Rate 16 05/02/24 14:22 Blood Pressure 164/82 05/02/24 14:22 Pulse Oximetry 94 05/02/24 14:22 Oxygen Delivery Me thod Room Air 05/02/24 14:22 MDM - Extremity Injury (Upper) Medical Decision Making XR showing fracture involving his distal phalanx of his right fourth finger. Will splint and have him follow-up with ortho. Recommend he reach out to his HR department regarding Worker's Comp. injury and follow-up. XR interpretation done by ED provider, pending radiology final review Discharge Plan Discharge Patient Disposition: Home Clinical Impression: Closed fracture of distal phalanx of right ring finger Qualifiers: Encounter type: initial encounter Fracture alignment: nondisplaced Qualified Code(s): S62.664A - Nondisplaced fracture of distal phalanx of right ring finger, initial encounter for closed fracture Condition: Stable Prescriptions: No Action venlafaxine [Effexor XR] 75 mg capsule,extended release 24hr 75 mg PO DAILY Qty: 30 2RF trazodone 50 mg tablet 100 mg PO .HS PRN (Reason: insomnia) Qty: 60 2RF Discharge Orders: Discharge ED (Routine); Ordered 05/02/24 Ordered By: Ning Silva Referrals: Donna Al MD [Primary Care Provider] - Patient Instructions: Finger Fracture (ED) Activity Restrictions/Additional Instructions: As we discussed, case management should contact you to help set you up with your follow-up orthopedic appointment. Please speak to your HR department regarding your Worker's Comp. injury and follow-up for this. You need to stay in your splint at all times until told otherwise by orthopedics. Coding Level of Care Code ED Underground Production Foreperson for Brandon Stanton
--- NOTE | 2024-05-02 14:57 | XR_ITS ---
WS: [id number] XR hand RT min 3V* [id number] REASON FOR EXAM: trauma-3rd and 4th distal fingers FINDINGS: Remote amputation second and third fingers distal to the proximal middle phalanges. Deformity of the base of the fifth metacarpal likely old healed fracture. There is a minimally displaced tuft fracture of the distal phalanx of the fourth finger. Joint spaces of the hand are intact and relatively well preserved. No radiopaque foreign body. XR/XR hand RT min 3V* [id number] IMPRESSION: Acute/subacute fracture of the tuft of the fourth finger as above.
--- NOTE | 2024-05-05 07:59 | DCPLANNER ---
message sent to Ortho RT distal finger fx
== END 2024-05-02 15:58 | disposition home or self-care (01) ==
PROVIDERS: Emergency Provider Physician Assistant; PCP Pediatrics Adolescent Medicine
DX: S62.664A Nondisplaced fracture of distal phalanx of right ring finger, initial encounter for closed fracture (principal); Z72.0 Tobacco use; X58.XXXA Exposure to other specified factors, initial encounter
CPT/HCPCS: 73130; 99283

== ENCOUNTER → 2024-05-08 08:59 | Outpatient (BNVA) | payer OTHER, SELFPAY | PROVIDERS: Visit Provider Physician Assistant | DX: S62.664A Nondisplaced fracture of distal phalanx of right ring finger, initial encounter for closed fracture (principal); W23.0XXA Caught, crushed, jammed, or pinched between moving objects, initial encounter; Y93.H9 Activity, other involving exterior property and land maintenance, building and construction | CPT/HCPCS: 73130 ==

== ENCOUNTER 2024-05-08 10:24 | Outpatient (CLI) | payer SELFPAY | END 2024-05-08 10:25 | disposition home or self-care (01) | LOC: SOT 10:25 | PROVIDERS: Visit Provider Physician Assistant | DX: Z46.89 Encounter for fitting and adjustment of other specified devices (principal); S62.664D Nondisplaced fracture of distal phalanx of right ring finger, subsequent encounter for fracture with routine healing; X58.XXXD Exposure to other specified factors, subsequent encounter | CPT/HCPCS: 97760; L3925 ==

== ENCOUNTER → 2024-06-11 09:42 | Outpatient (BNVA) | payer OTHER, SELFPAY | PROVIDERS: Visit Provider Physician Assistant | DX: S62.664A Nondisplaced fracture of distal phalanx of right ring finger, initial encounter for closed fracture (principal); W23.0XXA Caught, crushed, jammed, or pinched between moving objects, initial encounter | CPT/HCPCS: 73130 ==

== ENCOUNTER 2025-02-23 19:09 | Emergency (ER) | payer OTHER, SELFPAY ==
--- NOTE | 2025-02-23 19:11 | XRR_ITS ---
PROCEDURE INFORMATION: Exam: XR Chest Exam date and time: 02/23/2025 7:33 PM Age: 24 years old Clinical indication: Cough TECHNIQUE: Imaging protocol: Radiologic exam of the chest. Views: 1 view. COMPARISON: CR XR chest 1V [id number] 02/07/2024 8:17 AM FINDINGS: Lungs: Unremarkable. No consolidation. Pleural spaces: Unremarkable. No pleural effusion. No pneumothorax. Heart/Mediastinum: Unremarkable. No cardiomegaly. Bones/joints: Unremarkable. XR/XR chest 1V portable [id number] IMPRESSION: No acute findings.
[2025-02-23 19:12] VITALS: BP 123/78; PULSE 100; RESP 16; TEMP 36.4; O2SAT 99; BMI 24.5
--- OUTSIDE RECORDS SUMMARY | 2025-02-23 19:16 | XMS_ITS | Clinical Summary ---
Author Organization [facility] Address [address] [place] [address] Phone Care Team Providers Care Veneer Sander Name Role Phone Donna Al MD Primary Care Provider Allergies No known active allergies Medications No known medications Active Problems Problem Noted Date Diagnosed Date Nevus 01/30/2016 Overview (01/30/2016): On right scapula Fever 01/29/2016 Tobacco use 01/27/2016 Resolved Problems Problem Noted Date Diagnosed Date Resolved Date Acute tonsillitis 02/04/2016 12/28/2016 Peritonsillar abscess 01/29/20162016 Immunizations Immunization Administration Dates Next Due INFLUENZA VACCINE QUADRIVALENT 3 YR UP PF IM Family History Medical History Relation Name Comments Healthy Father Gin Healthy Mother Relation Name Status Comments Father Gin Alive Mother Alive Social History Tobacco Use Types Packs/Day Years Used Date Smoking Tobacco: Every Day Cigarettes 0 Smokeless Tobacco: Never Tobacco Cessation:Ready to Q uit: No Alcohol Use Standard Drinks/Week Comments No 0 (1 standard drink = 0.6 oz pur e alcohol) Sex and Gender Information Value Date Recorded Sex Assigned at Not on file Legal Sex Male 6:40 PM CDT Gender Identity Not on file Sexual Orientation Not on file Last Filed Vital Signs Vital Sign Reading Time Taken Comments Blood Pressure 137/91 09/14/2020 3:18 PM CDT Pulse 140 09/14/2020 3:18 PM CDT Temperature 36.6 C (97.9 F) 07/12/2020 10:10 PM CDT Respiratory Rate 15 07/12/2020 10:10 PM CDT Oxygen Saturation 98% 07/12/2020 10:10 PM CDT Inhaled Oxygen Concentration - - Weight 69.9 kg (154 lb) 09/14/2020 3:18 PM CDT Height 188 cm (6' 2 ) 09/14/2020 3:18 PM CDT Body Mass Index 19.77 09/14/2020 3:18 PM CDT Plan of Treatment Health Maintenance Due Date Last Done Comments HPV VACCINES (1 - Male 3-dose series) 2014 DTAP/TDAP/TD VACCINES (1 - Tdap) 2018 HEPATITIS B VACCINES (1 of 3 - 19+ 3-dose series) 04/16 INFLUENZA VACCINE (#1) 2024 01/30/2016 Insurance WORK[employer] [address] [place] [address] Advance Directives For more information, please contact: [phone] * Full Code (Latest Code Status on File) Date Activated Date Inactivated Comments 07/12/2020 7:38 PM 07/13/2020 12:42 AM * Full Code Date Activated Date Inactivated Comments 01/28/2016 10:56 PM 01/30/2016 2:06 PM Care Teams Veneer Sander Relationship Specialty Start Date End Date Donna Al MD [address] [place] [phone] PCP - General Pediatrics 01/27/16
--- OUTSIDE RECORDS SUMMARY | 2025-02-23 19:16 | XMS_ITS | Data Portability ---
Author Organization [facility] [place], [place], [facility] Address [address] [place] [address] Assessment No assessment recorded. Plan of Treatment Reminders Order Date Submit Date Provider Last Modified By Organization Details Last Modified Time Details Appointments None recorded. Lab None recorded. Referral None recorded. Procedures None recorded. Surgeries None recorded. Imaging None recorded. Medication Orders meloxicam 15 mg tablet 2023 024 [facility], [place], [address], 4 14:00:17 tizanidine 4 mg tablet 2023 [facility], [address] [address], [place], [address], 4 14:00:17 Patient TargetsNo targets recorded. Patient InstructionsNo instructions recorded. Reason for Referral None Reported. Problems Name Problem SNOMED Code Status Onset Date Resolution Date Notes Provider Name and Address Organization Details Recorded Time Strain of thoracic region 26023440 Active Basil Tejada MD [address] [place] [address], [phone] , [facility] 4 13:58[facility]09 Problem Notes None recorded. Medical Equipment None Reported. Allergies No known drug allergies Medications Name Sig Start Date Stop Date Status Note LastModified by Organization Details LastModified Time tizanidine 4 mg tablet Take 1 tablet every 6 hours by oral route. 024 active Not Available Not Available Not Avai lable meloxicam 15 mg tablet Take 1 tablet every day by oral route. 024 active Not Available Not Available Not Avai lable Vitals Date Recorded Body weight Body mass index (BMI) Body height Body temperature Respiratory rate Heart rate Oxygen saturation Oxygen saturation in Arterial blood by Pulse oximetry Systolic And Diastolic Provider Name and Address Organization Details Last Updated DateTime 4 65227.4 1 g 20 kg/m2 187.96 cm 97.1 [degF] 19 /min 112 /min 95 % 95 % 142/86 mm[Hg] [facility], [facility] 4 13:49:17 Social History None recorded. Functional Status None recorded. Mental Status None recorded. Family History Nothing Reported. Medical History No medical history recorded. Past Encounters Encounter ID Performer Location Encounter Start Date Encounter Closed Date Diagnosis/Indication Diagnosis SNOMED-CT Code Diagnosis ICD10 Code Diagnosis IMO Codes Diagnosis Note [id number] Basil Tejada MD [facility] ([facility]) [address] [place] [phone] 04/21/2023 12:50:51 04/24/2023 11:05:40 Strain of thoracic region 26722979 S29.019A Likely muscle strain based on history and exam. Start anti-infla mmatory muscle relaxer. Discussed restrictio ns to help with recovery. Recommend daily stretching . Health Concerns Section Related Observation LastModified by Organization Detai ls LastModified Time None Recorded Concern Status LastModified by Organization Details LastModified Time None Recorded Advance Directives Directive None Recorded Payers Insurance Date Sequence Insurance Name Policy Number Policy Saenz Covered Member ID Saenz Member ID Guarantor Name 04/24/2023 1 ANTONIETA VERDE FROM [employer] (EPO) Leticia Bueno [id number] 1 Myles Parmar Gist Notes Date Note Type Note Provider Name and Address Organization Details Recorded Time 04/21/2023 text/html Back PainReporte d by PatientHPIFor duration, patient reports2 weeks. For context, patient reportstrauma.ROS as noted in the HPI Patient states he's had back/shoulder pain for two weeks. Pain is located in his left shoulder blade. He states that he picked up an oxygen bottle and went to turn with it and thinks he might have pulled something. He states it hurts all the time, but worse when he moves his left arm or tries to pick something up. Basil Tejada MD [address] [place] [address], [phone], [facility], [place] 04/22/2023 09:56:42
--- OUTSIDE RECORDS SUMMARY | 2025-02-23 19:16 | XMS_ITS | Clinical Summary ---
Author Organization [facility] Address [address] [place] [address] Phone Care Team Providers Care Typesetter Perforator Operator Name Role Phone Donna Al MD Primary Care Provider Allergies No known active allergies Active Problems Problem Noted Date Diagnosed Date Nevus 01/30/2016 Overview (08/12/2020): On right scapula Fever 01/29/2016 Tobacco use 01/27/2016 Resolved Problems Problem Noted Date Diagnosed Date Resolved Date Acute tonsillitis 02/04/2016 12/28/2016 Peritonsillar abscess 01/29/20162016 Immunizations Immunization Administration Dates Next Due INFLUENZA VACCINE QUADRIVALENT 3 YR UP PF IM Family History Medical History Relation Name Comments Healthy Father Dorcas Healthy Mother Relation Name Status Comments Father Dorcas Alive Mother Alive Social History Tobacco Use Types Packs/Day Years Used Date Smoking Tobacco: Every Day Cigarettes Smokeless Tobacco: Never Alcohol Use Standard Drinks/Week Comments No 0 (1 standard drink = 0.6 oz pur e alcohol) Sex and Gender Information Value Date Recorded Sex Assigned at Not on file Legal Sex Male 4:00 AM ADVISER SALES Gender Identity Not on file Sexual Orientation Not on file Last Filed Vital Signs Vital Sign Reading Time Taken Comments Blood Pressure 137/91 09/14/2020 3:18 PM CDT Pulse 140 09/14/2020 3:18 PM CDT Temperature 36.6 C (97.9 F) 07/12/2020 10:10 PM CDT Respiratory Rate 15 07/12/2020 10:10 PM CDT Oxygen Saturation - - Inhaled Oxygen Concentration - - Weight 69.9 [...] 04/16 INFLUENZA VACCINE (#1) 2024 01/30/2016 Insurance CLAIMS [facility] [address] [place] [address] Care Teams Typesetter Perforator Operator Relationship Specialty Start Date End Date Donna Al MD [address] [place] [phone] PCP - General 07/12/20
--- NOTE | 2025-02-23 19:28 | ECG_ITS ---
[employer] Test Date: 2025-02-23 Pat Name: Myles Kelly Department: Room: Gender: Male Video Surveillance Technician: : 2000 Requested By: Dre Velasquez Order Number: [id number] Reading MD: Measurements Intervals [place] Rate: 111 P: 67 MT: 135 QRS: -36 QRSD: 89 T: 44 QT: 307 QTc: 418 Interpretive Statements SINUS TACHYCARDIA LEFT ATRIAL ENLARGEMENT [-0.15mV P-WAVE IN V1/V2] LEFT AXIS DEVIATION [QRS AXIS < -30] SEPTAL MYOCARDIAL INFARCTION , OF INDETERMINATE AGE [40+ ms Q WAVE IN V1/V2] No previous ECG available for comparison [email or web address]
--- NOTE | 2025-02-23 19:58 | ED_ITS ---
HPI - URI/Sore Throat General: Chief Complaint: Upper Respiratory Infection Stated Complaint: Chest Hurt when he Coughs Time Seen by Provider: 02/23/25 19:37 Source: patient Mode of arrival: ambulatory Limitations: no limitations History of Present Illness: Patient is a 24-year-old male present to the emergency department complaining of left chest pain beginning yesterday afternoon. States that the pain is reproducible with palpation and hurts when he takes a deep breath. He is a cigarette smoker, also states he has been exerting himself recently by working on fences outside. Pain worsened only with deep breaths, he does not have associated symptoms of sweating, nausea or vomiting, or pertinent cardiac history. His vitals are overall stable at this time, minimally tachycardic but he states he is not having any palpitations. No reported sick contacts. He has not tried any medications. MD elicited complaint: cough Associated symptoms: Reports chest pain; Deny abdominal pain, chills, diarrhea, ear or mastoid pain, fever(s), headache(s), nausea or vomiting Related Data Previous Rx's ?Medication ?Instructions ?Recorded trazodone 50 mg tablet 100 mg (2 x 50 mg) PO .[facility] N 03/25/24 insomnia #60 tabs venlafaxine 75 mg capsule,extended 75 mg PO DAILY #30 caps 03/25/24 release 24 hr (Effexor XR) custom right ring finger tip #1 ea 05/08/24 protector ketorolac 10 mg tablet 10 mg PO Q8H PRN pain 5 days #15 02/23/25 tabs prednisone 10 mg tablets in a dose 10 mg PO DIRECTE D #21 ea 02/23/25 pack Allergies Allergy/AdvReac Type Severity Reaction Status Date / Time No Known Allergies Allergy Verified 02/23/25 19:23 Review of Systems General: Reports: 10 or more systems reviewed and unremarkable except in HPI and below Const: Denies: fever(s), chills or fatigue Eyes: Denies: change in vision ENMT: Denies: throat pain, ear or mastoid pain or nasal discharge Card: Reports: chest pain; Denies: palpitations, swelling of feet/ankles or lightheadedness Resp: Reports: non-productive cough and pain on inspiration; Denies: dyspnea, productive cough or wheezing GI: Denies: abdominal pain, nausea, vomiting, diarrhea or constipation : Denies: flank pain, difficulty urinating, dysuria or urinary frequency Musc: Denies: neck pain, back pain or joint pain Skin/Breast: Denies: rash Neuro: Denies: headache(s), numbness in extremities or weakness in extremities PFSH ED PFSH: Medical History Psychiatric care No pertinent past medical history Social History Smoking and tobacco/nicotine status: current every day tobacco/nicotine user Physical Exam Const: COMMON NORMALS: no acute distress, patient oriented x3, no limitations, healthy appearing, alert and well nourished HENMT: COMMON NORMALS: normocephalic and atraumatic HEAD & SCALP: normocephalic and atraumatic Neck/C-Spine: COMMON NORMALS: full ROM, supple and no meningeal signs Chest: OTHER: Reproducible tender to palpation to left anterolateral chest wall Resp: COMMON NORMALS: normal respiratory effort, No use of accessory muscles and clear to auscultation bilaterally AUSCULTATION: clear to auscultation bilaterally Cardio: COMMON NORMALS: regular rate and regular rhythm RATE: regular rate RHYTHM: regular rhythm Extremity: COMMON NORMALS: normal to inspection, full ROM, capillary refill normal and no joint enlargement Neuro: COMMON NORMALS: patient oriented x3, moves all extremities, no focal motor deficits and no sensory deficits noted SENSORIUM/ORIENTATION: Yes alert MENINGEAL SIGNS: Yes no meningeal signs Skin: COMMON NORMALS: no rashes or lesions noted GENERAL SKIN EXAM: no rashes or lesions noted Course Vital Signs: Vital signs: Vital Signs Temperature 97.6 F 02/23/25 19:12 Pulse Rate 82 02/23/25 20:49 Respiratory Rate 16 02/23/25 20:49 Blood Pressure 128/86 02/23/25 20:49 Pulse Oximetry 97 02/23/25 20:49 Oxygen Delivery Me thod Room Air 02/23/25 19:12 MDM - URI/Sore Throat Medical Decision Making The patient presented with left-sided reproducible chest pain on palpation, no pertinent cardiac medical history. Vital stable on arrival, noted to me that he been working outside quite a bit recently on fence. Pain with taking a deep breath, indicating chest pain mostly pleuritic in nature, he had no associated anginal equivalent such as diaphoresis or vomiting. EKG reviewed physician showing sinus tachycardia with no acute ST segment changes. X-ray showing no focal consolidation, he has improvement of symptoms with Toradol and Decadron here in the emergency department making this likely that this is a costochondritis. However did inform him to return if his condition worsens, of which he verbalizes understanding. I have low suspicion that this is ACS. Lab Data Radiology Impressions Chest X-Ray 02/23/25 19:11 IMPRESSION: No acute findings. Laboratory Results Influenza A (PCR) Negative (Negative) 02/23/25 19:44 Influenza Type B (PCR) Negative (Negative) 02/23/25 19:44 RSV (PCR) Negative (Negative) 02/23/25 19:44 SARS-CoV-2 (PCR) Negative (Negative) 02/23/25 19:44 All radiology interpretation(s) finalized by discharge Discharge Plan Discharge Patient Disposition: Home Clinical Impression: Acute costochondritis Condition: Stable Prescriptions: New ketorolac 10 mg tablet 10 mg PO Q8H PRN (Reason: pain) 5 Days Qty: 15 0RF prednisone 10 mg tablets,dose pack 10 mg PO DIRECTED Qty: 21 0RF Rx Instructions: see taper instructions 6 tablets on day 1, 5 tablets on day 2, 4 tablets on day 3, 3 tablets on day 4, 2 tablets on day 5, and 1 tablet a day 6. P.o. No Action venlafaxine [Effexor XR] 75 mg capsule,extended release 24hr 75 mg PO DAILY Qty: 30 2RF trazodone 50 mg tablet 100 mg PO .HS PRN (Reason: insomnia) Qty: 60 2RF (DME) custom right ring finger tip protector See Rx Instructions .Route .MEDSUPPLY Qty: 1 0RF Rx Instructions: As directed Discharge Orders: Discharge ED (Routine); Ordered 02/23/25 Ordered By: Dre Mercado Patient Instructions: Patient Portal & Romulo Instructions Activity Restrictions/Additional Instructions: Costochondritis Discharge Instructions You have been diagnosed with costochondritis, which is inflammation of the cartilage connecting your ribs to your breastbone. This condition causes chest pain that is usually benign and self-limited. Medications: - Prednisone taper: Take prednisone exactly as prescribed. Do not stop suddenly unless instructed. Prednisone is a steroid that can help reduce inflammation and pain. Possible side effects include mood changes, trouble sleeping, increased blood sugar, and stomach upset. If you have diabetes, monitor your blood sugar closely. - Toradol (ketorolac): Take as directed for pain. This is a non-steroidal anti- inflammatory drug (NSAID). Common side effects include stomach upset and, rarely, ulcers or bleeding. Take with food to reduce stomach irritation. Safety tips: - If you are taking both prednisone and an NSAID, you may be at higher risk for stomach irritation or ulcers. Consider using a medication to protect your stom ach, such as a proton pump inhibitor, if recommended. - Avoid activities that worsen your chest pain, such as heavy lifting or strenuous exercise, until symptoms improve. - Do not take extra doses of either medication. When to return or seek help: - Return immediately if you develop new or worsening symptoms, such as: - Severe or persistent chest pain - Shortness of breath - Fever - Coughing up blood - Swelling, redness, or warmth over the chest wall - Severe stomach pain, vomiting blood, or black stools - If you experience side effects from your medications, such as mood changes, trouble sleeping, high blood pressure, or signs of infection, contact your healthcare provider. Follow-up: - Most cases improve within a few weeks. If your pain does not improve or worsens, follow up with your healthcare provider. - If you have any chronic medical conditions (such as diabetes, high blood pressure, or stomach ulcers), monitor them closely while on these medications. Questions: - If you have any questions about your medications or symptoms, contact your healthcare provider. Remember: Costochondritis is not related to heart disease, but if you ever have chest pain that feels different, is severe, or is associated with sweating, nausea, or fainting, seek emergency care. Print Language: Lao Coding Level of Care Code ED Electroneurodiagnostic Technician for Brandon Stanton
[2025-02-23 19:59] VITALS: BP 157/94; PULSE 84; RESP 16; O2SAT 100
[2025-02-23 20:26] VITALS: BP 120/77; PULSE 93; RESP 18; O2SAT 99
[2025-02-23 20:27] LABS: Respiratory Syncytial Virus Ce NEGATIVE (Negative); SARS-CoV-2 PCR NEGATIVE (Negative)
[2025-02-23 20:44] VITALS: BP 128/86; PULSE 86; RESP 14; O2SAT 98
[2025-02-23 20:49] VITALS: BP 128/86; PULSE 82; RESP 16; O2SAT 97
== END 2025-02-23 20:50 | disposition home or self-care (01) ==
PROVIDERS: Emergency Provider Physician Assistant
DX: M94.0 Chondrocostal junction syndrome [Tietze] (principal); Z11.52 Encounter for screening for COVID-19; Z72.0 Tobacco use
CPT/HCPCS: 71045; 87637; 93005; 96372; 99285; J1100; J1885